=== PATIENT | male | born 2000 | race Caucasian/White ===

== ENCOUNTER 2021-04-01 07:49 | Outpatient (REF) | payer MEDICAID, SELFPAY ==
[2021-04-01 11:08] LABS: MANUAL DIFF FLAG NO
[2021-04-01 11:23] LABS: Basophils Percent Auto 0.4 % (0-2); Eosinophils Absolute Auto 0.2 X10*3/uL (0.0-0.4); Hematocrit 45.4 % (42.0-52.0); Hemoglobin 15.3 g/dl (14.0-18.0); Imm Gran Abs Auto 0.02 X10*3/uL (0.00-0.03); Imm Gran Pct Auto 0.3 % (0.0-0.4); Lymphocytes Absolute Auto 2.2 X10*3/uL (1.2-4.9); Lymphocytes Percent Auto 29.4 % (20-40); Mean Corpuscular HGB Conc 33.7 g/dl (31.0-36.0); Mean Corpuscular Hemoglobin 29.9 pg (27.0-33.0); Mean Corpuscular Volume 88.7 fL (80.0-98.0); Mean Platelet Volume 11.7 fL (9.4-12.4); Monocytes Absolute Auto 0.7 X10*3/uL (0.1-1.2); Monocytes Percent Auto 8.9 % (2-11); Neutrophils Absolute Auto 4.4 x10*3/uL (2.0-8.3); Platelet Count 165 X10*3/uL (160-400); Red Blood Count 5.12 X10*6/uL (4.60-5.80); Red Cell Distribution Width 12.6 % (11.0-16.0); White Blood Count 7.5 X10*3/uL (4.8-10.8)
[2021-04-01 12:03] LABS: Alanine Aminotransferase 60 U/L (0-40); Albumin Level 4.4 g/dL (3.5-5.0); Alkaline Phosphatase 59 U/L (39-117); Anion Gap 11 (12-20); Aspartate Amino Transferase 45 U/L (5-37); Blood Urea Nitrogen 14 mg/dL (9-16); Calcium 9.7 mg/dL (8.4-10.2); Carbon Dioxide 28 mmol/L (22-29); Chloride 108 mmol/L (96-108); Cholesterol 217 mg/dL; Estimated Glomerular Filt Rate > 60; Glucose Random 83 mg/dL (60-115); HDL Cholesterol 69 mg/dL; LDL Cholesterol Calculated 135 mg/dl; Potassium 4.3 mmol/L (3.3-5.1); Sodium 143 mmol/L (135-145); Total Protein 7.3 g/dL (6.5-8.0); Triglycerides 68 mg/dL
== END 2021-04-01 07:50 | disposition home or self-care (01) ==
LOC: HO.HMGCLDS 07:49
PROVIDERS: PCP Internal Medicine; Visit Provider Neuromusculoskeletal Medicine, Sports Medicine
DX: Z00.00 Encounter for general adult medical examination without abnormal findings (principal); R51.9 Headache, unspecified
CPT/HCPCS: 36415; 80053; 80061; 85025

== ENCOUNTER 2021-04-07 08:16 | Outpatient (REF) | payer MEDICAID, SELFPAY ==
--- NOTE | ~2021-04-07 | XR_ITS ---
EXAMINATION: XR CHEST CLINICAL INFORMATION: Episodes of wheezing. History of asthma. COMPARISON: None TECHNIQUE: 2 views of the chest were obtained. FINDINGS: No significant abnormality is noted involving the heart, lungs, mediastinum, bony thorax or soft tissues. XR/XR chest 2V IMPRESSION: Unremarkable chest examination.
== END 2021-04-07 08:17 | disposition home or self-care (01) ==
LOC: HO.XRAY 08:16
PROVIDERS: PCP Internal Medicine; Visit Provider Neuromusculoskeletal Medicine, Sports Medicine
DX: J45.909 Unspecified asthma, uncomplicated (principal)
CPT/HCPCS: 71046

== ENCOUNTER → 2022-03-17 10:36 | Outpatient (BNVA) | payer OTHER, SELFPAY | PROVIDERS: PCP Internal Medicine; Visit Provider Physician Assistant | DX: S61.211A Laceration without foreign body of left index finger without damage to nail, initial encounter (principal); W26.9XXA Contact with unspecified sharp object(s), initial encounter | CPT/HCPCS: 12001; 90715; 99204 ==

== ENCOUNTER → 2022-03-22 14:03 | Outpatient (BNVA) | payer OTHER, SELFPAY | PROVIDERS: PCP Internal Medicine; Visit Provider Physician Assistant Medical | DX: S61.211A Laceration without foreign body of left index finger without damage to nail, initial encounter (principal); W26.9XXA Contact with unspecified sharp object(s), initial encounter | CPT/HCPCS: 99213 ==

== ENCOUNTER → 2022-03-25 12:50 | Outpatient (BNVA) | payer OTHER, SELFPAY | PROVIDERS: PCP Internal Medicine; Visit Provider Physician Assistant | DX: S61.211A Laceration without foreign body of left index finger without damage to nail, initial encounter (principal); W26.9XXA Contact with unspecified sharp object(s), initial encounter | CPT/HCPCS: 99213 ==

== ENCOUNTER → 2022-03-31 15:43 | Outpatient (BNVA) | payer OTHER, SELFPAY | PROVIDERS: PCP Internal Medicine; Visit Provider Internal Medicine | DX: S61.211D Laceration without foreign body of left index finger without damage to nail, subsequent encounter (principal); W26.9XXD Contact with unspecified sharp object(s), subsequent encounter | CPT/HCPCS: 99213 ==

== ENCOUNTER → 2022-04-15 15:29 | Outpatient (BNVA) | payer OTHER, SELFPAY | PROVIDERS: PCP Internal Medicine; Visit Provider Internal Medicine | DX: S61.211D Laceration without foreign body of left index finger without damage to nail, subsequent encounter (principal); W26.9XXD Contact with unspecified sharp object(s), subsequent encounter | CPT/HCPCS: 99213 ==

== ENCOUNTER 2022-11-09 07:27 | Outpatient (AMB) | payer OTHER, SELFPAY ==
[2022-11-09 07:38] VITALS: BP 110/70; PULSE 71; O2SAT 99; BMI 25.1
--- NOTE | 2022-11-09 07:38 | MHC.PC.OV ---
Vital Signs 11/09/22 07:38 Height 5 ft 8 in Weight 165 lb BMI 25.1 BP 110/70 Blood Pressure Location Lt brachial Position Sitting Pulse 71 Pulse Source Pulse Oximeter Pulse Oximetry (%) 99 Oxygen Delivery Method Room Air Intake Visit Reasons: PE Intake Note: Pt is here today for PE. Allergies Penicillins Allergy (Verified 11/09/22 07:40) unknown Medication List - Last Reconciled 11/09/22 by Lisa Choi MD albuterol sulfate 90 mcg/actuation (ProAir HFA) 2 puffs inhalation Q4-6H PRN fluticasone propion-salmeterol 100-50 mcg/dose (Advair Diskus) 1 inh inhalation BID fluticasone propion-salmeterol 250-50 mcg/dose (Advair Diskus) 1 inh inhalation BID Tobacco use date assessed: 11/09/22 Dental Screening Dental Screen Date: 11/09/22 Did you have a dental visit in the last 12 months?: Yes Did you have a dental problem in the last 6 months where you did not have access to dental care?: No Was dental information given to patient?: Patient has dentist HPI PE HPI Details Patient presents for physical. 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 Patient has been using Advair twice a day but also albuterol almost daily. He denies nocturnal shortness of breath or wheezing. [facility] Medical History (Updated 11/09/22 @ 07:57 by Lisa Choi MD) Asthma Family History (Updated 11/09/22 @ 07:44 by Adriana Damon [facility]) Father No problems noted. Mother No problems noted. Social History Housing: House Patient Tobacco Use Status: Never used Tobacco e-Cigarette/Vaping Use: Never Used Current occupational status: employed Cognitive needs: No Hearing needs: Yes Vision needs: No Questionnaire PHQ-9 Over the last 2 weeks, how often have you been bothered by any of the following problems? 1. Little interest or pleasure in doing things: not at all 2. Feeling down, depressed, or hopeless: not at all 3. Trouble falling or staying asleep, or sleeping too much: not at all 4. Feeling tired or having little energy: not at all 5. Poor appetite or overeating: not at all 6. Feeling bad about yourself - or that you are a failure or have let yourself or your family down: not at all 7. Trouble concentrating on things, such as reading the newspaper or watching television: not at all 8. Moving or speaking so slowly that other people could have noticed. Or the opposite - being so fidgety or restless that you have been moving around a lot more than usual: not at all 9. Thoughts that you would be better off or of hurting yourself in some way: not at all Total score: 0 Depression Screening Interpretation: Negative Source: Developed by Drs. Blaine Castro, Lore Arroyo, Zander Pastrana and colleagues, with an educational harvey from [employer]. Thrive Questionnaire Date Thrive assessed: 11/09/22 I am a: Patient What is your living situation today?: I have a steady place to live Within the past 12 months, did the food you bought not last and you didn't have the money to get more?: Never true Within the past 12 months, did you worry whether your food would run out before you got money to buy more?: Never true Do you have trouble paying for medicines?: No Do you have trouble getting transportation to medical appointments?: No Do you have trouble paying your heating and electricity bill?: No Do you have trouble taking care of your child, family member or friend?: No Do you have trouble with day-to-day activities such as bathing, preparing meals, shopping, managing finances, etc.?: No Are you currently unemployed and looking for a job?: No Are you interested in more education?: No Please select the resources that you would like help with: None Currently or been in a relationship where the following occur: no concerns reported AUDIT C Alcohol Use Questionnaire (AUDIT-C) 1. How often do you have a drink containing alcohol?: Monthly or less 2. How many drinks containing alcohol do you have on a typical day when you are drinking?: 1 or 2 3. How often do you have six or more drinks on one occasion?: Never Total Score: 1 ZEESHAN-7 AMB Questionnaire ZEESHAN-7 Date ZEESHAN - 7 assessed: 08/16/23 Feeling nervous, anxious, or on edge: 0 = Not at all Not being able to stop or control worryin = Not at all Worrying too much about different things: 0 = Not at all Trouble relaxin = Not at all Being so restless that it is hard to sit still: 0 = Not at all Becoming easily annoyed or irritable: 0 = Not at all Feeling afraid as if something awful might happen: 0 = Not at all Total ZEESHAN-7 score (0-4 normal; 5-9 mild; 10-14 moderate; 15-21 severe): 0 Source: Developed by Drs. Blaine Castro, Lore Arroyo, Zander Pastrana and colleagues, with an educational harvey from [employer]. Review of Systems Const All systems reviewed & are unremarkable except as noted in HPI and below Reports no additional complaints Eyes Reports no additional complaints ENT Reports no additional complaints Card Reports no additional complaints Resp Reports no additional complaints GI Reports no additional complaints Reports no additional complaints Physical exam (Primary Care) Vital Signs: Last Vital Signs Pulse 71 11/09/22 07:38 BP 110/70 11/09/22 07:38 Pulse Ox 99 11/09/22 07:38 Oxygen Delivery Method Room Air 11/09/22 07:38 BMI result Body Mass Index 25.1 Tobacco/Smoking Status: Tobacco use Status Tobacco use date assessed 11/09/22 11/09/22 07:44 Patient Tobacco Use Status Never used Tobacco 11/09/22 07:44 e-Cigarette/Vaping Use Never Used 11/09/22 07:44 PHQ-9: PHQ-9 Score PHQ-9: Total score 0 11/09/22 07:44 Depression Screening Interpretation: Negative Thrive Assessment: Date of Thrive Assessment Date Thrive assessed 11/09/22 11/09/22 07:44 Currently or been in a relationship where the following occur: no concerns reported Const General: no acute distress HENMT Head: Yes normal to inspection General nose exam: Normal external nose present Mouth: Normal oral and palatal mucosa present Throat: Yes posterior oropharynx normal Eyes General: appearance normal, both eyes and all related structures Neck Neck: Yes no lymphadenopathy and Yes supple Resp Effort & Inspection: normal respiratory effort Auscultation: clear to auscultation bilaterally Cardio Rhythm: regular rhythm Heart sounds: S1 normal heart sound present and S2 normal heart sound present GI Inspection: Yes normal to inspection Palpation (GI): Soft to palpation Percussion: Yes normal to percussion Auscultation: normal bowel sounds Assessment and Plan Assessment & Plan (1) Warts: Code(s): B07.9 - Viral wart, unspecified Plan: Referred to dermatology (2) Annual physical exam: Code(s): Z00.00 - Encounter for general adult medical examination without abnormal findings Plan: Well-balanced diet regular physical activity discussed with the patient. Return in 3 months with a fasting labs including lipid profile (3) Asthma: Code(s): J45.909 - Unspecified asthma, uncomplicated Plan: Increase Advair to 250 twice a day continue albuterol as needed Orders: Orders Comprehensive [place]. Panel Fast 3 Months J45.909 - Unspecified asthma, uncomplicated, Z00.00 - Encounter for general adult medical examination without abnormal findings Complete Blood Count Auto Diff 3 Months J45.909 - Unspecified asthma, uncomplicated, Z00.00 - Encounter for general adult medical examination without abnormal findings Lipid Panel 3 Months J45.909 - Unspecified asthma, uncomplicated, Z00.00 - Encounter for general adult medical examination without abnormal findings Referrals Dermatology Referral B07.9 - Viral wart, unspecified Medications: New fluticasone propion-salmeterol 250-50 mcg/dose (Advair Diskus) 1 inh inhalation BID 60 ea 5RF Refilled albuterol sulfate 90 mcg/actuation (ProAir HFA) 2 puffs inhalation Q4-6H PRN 17 grams 4RF shortness of breath or wheezing Coding Level of Care Code Est Pt Prev Care 18-39y(03289) Diagnoses Warts B07.9 Annual physical exam Z00.00 Asthma J45.909
== END 2022-11-09 08:58 | disposition home or self-care (01) ==
PROVIDERS: Visit Provider Internal Medicine
DX: B07.9 Viral wart, unspecified (principal); Z00.00 Encounter for general adult medical examination without abnormal findings; J45.909 Unspecified asthma, uncomplicated
CPT/HCPCS: 99395

== ENCOUNTER 2023-05-22 14:48 | Outpatient (REF) | payer OTHER, SELFPAY ==
--- NOTE | ~2023-05-22 | XR_ITS ---
EXAMINATION: XR CHEST CLINICAL INFORMATION: Asthma COMPARISON: 04/07/2021 TECHNIQUE: 2 views of the chest were obtained. FINDINGS: No significant abnormality is noted involving the heart, lungs, mediastinum, bony thorax or soft tissues. XR/XR chest 2V IMPRESSION: Unremarkable examination.
[2023-05-22 16:15] LABS: MANUAL DIFF FLAG NO
[2023-05-22 17:17] LABS: Basophils Absolute Auto 0.1 X10*3/uL (0.0-0.2); Basophils Percent Auto 0.6 % (0-2); Eosinophils Percent Auto 0.4 % (0-4); Hematocrit 44.1 % (42.0-52.0); Hemoglobin 15.2 g/dl (14.0-18.0); Imm Gran Abs Auto 0.02 X10*3/uL (0.00-0.03); Imm Gran Pct Auto 0.2 % (0.0-0.4); Lymphocytes Absolute Auto 2.2 X10*3/uL (1.2-4.9); Lymphocytes Percent Auto 26.8 % (20-40); Mean Corpuscular HGB Conc 34.5 g/dl (31.0-36.0); Mean Corpuscular Hemoglobin 29.5 pg (27.0-33.0); Mean Corpuscular Volume 85.6 fL (80.0-98.0); Mean Platelet Volume 11.4 fL (9.4-12.4); Monocytes Absolute Auto 0.6 X10*3/uL (0.1-1.2); Monocytes Percent Auto 6.8 % (2-11); Neutrophils Absolute Auto 5.3 x10*3/uL (2.0-8.3); Neutrophils Percent Auto 65.2 % (45-73); Platelet Count 189 X10*3/uL (160-400); Red Blood Count 5.15 X10*6/uL (4.60-5.80); Red Cell Distribution Width 11.8 % (11.0-16.0); White Blood Count 8.2 X10*3/uL (4.8-10.8)
[2023-05-22 17:56] LABS: Erythrocyte Sedimentation Rate 2 MM/HR (0-15)
[2023-05-29 16:14] LABS: Class Alternaria alternata 0; Class Aspergillus fumigatus 0; Class Bermuda Grass 0; Class Birch 0; Class Cat Dander 0; Class Cladosporium herbarum 0; Class Cockroach 0; Class Common Ragweed 0; Class Cottonwood 0; Class Derm. pterony 0; Class Dermatophagoides farinae 0; Class Dog Dander 0; Class Elm 0; Class Maple Box Elder 0; Class Mountain Cedar 0; Class Mouse Urine Protein 0; Class Mugwort 0; Class Oak 0; Class Penicillium crysogenum 0; Class Rough Pigweed 0; Class Sheep Sorrel 0; Class Sycamore 0; Class Timothy Grass 0; Class Walnut Tree 0; Class White Ash 0; Class White Mulberry 0; D001 IgE D pteronyssinus <0.10 kU/L; D002 - IgE D farinae <0.10 kU/L; E001 - IgE Cat Dander <0.10 kU/L; E005 - IgE Dog Dander <0.10 kU/L; E072-IgE Mouse Urine <0.10 kU/L; G002 IgE Bermuda Grass <0.10 kU/L; G006 - IgE Timothy Grass <0.10 kU/L; I006-IgE Cockroach, German <0.10 kU/L; Immunoglobulin E 51 kU/L (<OR=114); M001 IgE Penicillium chrysogen <0.10 kU/L; M002 - IgE Cladosporium herbar <0.10 kU/L; M003 - IgE Aspergillus fumigat <0.10 kU/L; M006 - IgE Alternaria alternat <0.10 kU/L; T001 IgE Maple/Box Elder <0.10 kU/L; T003 IgE Common Silver Birch <0.10 kU/L; T006 - IgE Cedar, Mountain <0.10 kU/L; T007 - IgE Oak, White <0.10 kU/L; T008 IgE Elm, American <0.10 kU/L; T010 - IgE Walnut <0.10 kU/L; T011 - IgE Maple Leaf Sycamore <0.10 kU/L; T014 - IgE Cottonwood <0.10 kU/L; T015 - IgE Ash, White <0.10 kU/L; T070 - IgE White Mulberry <0.10 kU/L; W001 - IgE Ragweed, Short <0.10 kU/L; W006 - IgE Mugwort <0.10 kU/L; W014 IgE Pigweed, Common <0.10 kU/L; W018 IgE Sheep Sorrel <0.10 kU/L
== END 2023-05-22 14:49 | disposition home or self-care (01) ==
LOC: HO.LAB 14:48
PROVIDERS: PCP Internal Medicine; Visit Provider Hospitalist
DX: R91.1 Solitary pulmonary nodule (principal); J45.40 Moderate persistent asthma, uncomplicated; R05.3 Chronic cough; T78.40XA Allergy, unspecified, initial encounter
CPT/HCPCS: 36415; 71046; 82785; 85025; 85652; 86003; 99202

== ENCOUNTER 2023-05-22 14:48 | Outpatient (AMB) | payer OTHER, SELFPAY ==
[2023-05-22 14:59] VITALS: PULSE 82; O2SAT 98; BMI 25.1
--- NOTE | 2023-05-22 14:59 | A.OFFVIS_ITS ---
Intake Vital Signs 05/22/23 14:59 Height 5 ft 8 in Weight 164 lb 14.492 oz BMI 25.1 Pulse 82 Pulse Source Pulse Oximeter Pulse Oximetry (%) 98 Oxygen Delivery Method Room Air Intake Visit Reasons: Asthma Drafter Geological Required: No Allergies Penicillins Allergy (Verified 05/22/23 15:02) unknown HPI HPI Comments History of Present Illness Details the patient is here for pulmonary evaluation. The patient is a 23-year-old gentleman with a known history of childhood asthma who is presenting with worsening dyspnea symptoms. 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 There was lot of grinding. There is a lot of inorganic dust. Denies any exposure to any sand blasting or glass beating. the patient has been on Advair for many years. Typically does well and sometimes is can be off the medication. But sometimes when his breathing flares up he goes back the Advair has a hard time with his breathing. He has been having more frequent flare-ups. He does believe that the work may have something to do with it. He does know about any underlying allergies. Does not have any mold exposure. Has a pet dog. Denies any bird exposures. Again occupation [employer] he does have sign ificant exposures. No recent x-rays PFTs to review. At this point will start him on a Symbicort inhaler which I do believe will provide him with better as needed medication as opposed to the Advair as needed. in addition to that he may be a good candidate for Singulair but based on the fact that will be doing some initial testing the fact that he is doing okay will try to minimize the amount of medications at this time. Therefore, will switch him over the Symbicort will have a chest x-ray blood work and his PFTs and will follow-up to review the results. If the patient develops any worsening symptoms prior to the next visit he will call for earlier assessment. [facility] Medical History (Updated 05/22/23 @ 22:54 by Donald Bo MD) Chronic cough Allergies Asthma Family History (Updated 11/09/22 @ 07:44 by Adriana Damon [facility]) Father No problems noted. Mother No problems noted. Social History Housing: House Patient Tobacco Use Status: Never used Tobacco e-Cigarette/Vaping Use: Never Used Current occupational status: employed Cognitive needs: No Hearing needs: Yes Vision needs: No Review of Systems Const Denies fever(s) Eyes Reports no additional complaints ENT Reports nasal congestion Card Denies chest pain Resp Reports cough and Reports wheezing GI Reports no additional complaints Musc Reports no additional complaints Skin/Breast Denies rash Neuro Reports no additional complaints Beltran/Lymph Denies lymphadenopathy Aller/Immun Reports wheezing Physical Exam Vital Signs: Last Vital Signs Pulse 82 05/22/23 14:59 Pulse Ox 98 05/22/23 14:59 Oxygen Delivery Method Room Air 05/22/23 14:59 BMI result Body Mass Index 25.1 Const General: comfortable HEENT Head: Yes normocephalic Neck Neck: Yes supple Chest Chest palpation & inspection: normal inspection of the chest Resp Effort & Inspection: normal respiratory effort and prolonged expiratory phase Auscultation: no wheezes Cardio Heart sounds: S1 normal heart sound present and S2 normal heart sound present GI Palpation (GI): Soft to palpation Skin General skin exam: no rashes or lesions noted Extrem General: Yes no clubbing, cyanosis or edema Assessment & Plan Assessment & Plan (1) Asthma: Code(s): J45.909 - Unspecified asthma, uncomplicated Qualifiers: Asthma severity: moderate Asthma persistence: persistent Asthma complication type: uncomplicated Qualified Code(s): J45.40 - Moderate persistent asthma, uncomplicated (2) Allergies: Code(s): T78.40XA - Allergy, unspecified, initial encounter Qualifiers: Encounter type: initial encounter Qualified Code(s): T78.40XA - Allergy, unspecified, initial encounter (3) Chronic cough: Code(s): R05.3 - Chronic cough Plan Bloodwork/allergy testing PFTs CXR Stop Advair Start Symbicort BID consider singulair F/U 2-3 months Orders: Orders Resp Allergy Profile Region I Today J45.909 - Unspecified asthma, uncomplicated, R91.1 - Solitary pulmonary nodule, T78.40XA - Allergy, unspecified, initial encounter Immunoglobulin E Today J45.909 - Unspecified asthma, uncomplicated, T78.40XA - Allergy, unspecified, initial encounter Complete Blood Count Auto Diff Today J45.909 - Unspecified asthma, uncomplicated, T78.40XA - Allergy, unspecified, initial encounter PFT pulmonary function test Today J45.909 - Unspecified asthma, uncomplicated XR chest 2V Today J45.909 - Unspecified asthma, uncomplicated, T78.40XA - Allergy, unspecified, initial encounter Erythrocyte Sedimentation Rate Today J45.909 - Unspecified asthma, uncomplicated, T78.40XA - Allergy, unspecified, initial encounter Medications: New budesonide-formoterol 160-4.5 mcg/actuation (Symbicort) 2 puffs inhalation BID 30 days 10.2 grams 11RF J44.89 - Other specified chronic obstructive pulmonary disease Coding Level of Care Code New Pt Level 4 (48154) Diagnoses Moderate persistent asthma without complication J45.40 Asthma severity: moderate Asthma persistence: persistent Asthma complication type: uncomplicated Allergy, initial encounter T78.40XA Encounter type: initial encounter Chronic cough R05.3 Time Spent (min) 35
== END 2023-05-22 15:43 | disposition home or self-care (01) ==
PROVIDERS: PCP Internal Medicine; Visit Provider Hospitalist
DX: J45.40 Moderate persistent asthma, uncomplicated (principal); T78.40XA Allergy, unspecified, initial encounter; R05.3 Chronic cough
CPT/HCPCS: 99204

== ENCOUNTER 2023-06-26 15:00 | Outpatient (REF) | payer OTHER, SELFPAY ==
[2023-06-26 10:17] VITALS: PULSE 62; RESP 16; O2SAT 99
--- NOTE | 2023-06-26 16:00 | PFT_ITS ---
Indication: Asthma Spirometry [FEV1 to FVC 84%; FEV1 4.66 L; FVC 5.54 L. No significant response to bronchodilators noted. Maximum voluntary ventilation within normal limits.] Lung Volumes [Thorough on capacity 107% predicted] Diffusion Capacity [DLCO 103% predicted] Comparisons [None] Interpretation [No obstructive nor restrictive ventilatory defects appreciated. No significant response to bronchodilators noted. Normal stability ventilation. Lung volumes are within normal limits. Diffusing capacity also within normal limits. If asthma is in the differential methacholine challenge may be helpful in assessing for hyperactive airways. Clinical correlation warranted.] MTDD
== END 2023-06-26 15:01 | disposition home or self-care (01) ==
LOC: HO.RESP 15:00
PROVIDERS: PCP Internal Medicine; Visit Provider Hospitalist
DX: J45.909 Unspecified asthma, uncomplicated (principal)
CPT/HCPCS: 94010; 94640; 94727; 94729

== ENCOUNTER → 2023-06-26 16:00 | Outpatient (BNV) | payer OTHER, SELFPAY | PROVIDERS: PCP Internal Medicine; Visit Provider Hospitalist | DX: J45.909 Unspecified asthma, uncomplicated (principal) | CPT/HCPCS: 94060; 94727; 94729 ==

== ENCOUNTER 2023-07-24 14:36 | Outpatient (AMB) | payer OTHER, SELFPAY ==
[2023-07-24 14:42] VITALS: BP 124/76; PULSE 77; O2SAT 99; BMI 25.5
--- NOTE | 2023-07-24 14:42 | MHC.OFFVIS ---
Vital Signs 07/24/23 14:42 Height 5 ft 8 in Weight 167 lb 8.821 oz BMI 25.5 BP 124/76 Blood Pressure Location Rt brachial Position Sitting Pulse 77 Pulse Source Pulse Oximeter Pulse Oximetry (%) 99 Oxygen Delivery Method Room Air Intake Visit Reasons: Asthma Allergies Penicillins Allergy (Verified 07/24/23 14:44) unknown HPI Comments Details: The patient is a 23-year-old gentleman with a known history of childhood asthma who is presenting with worsening dyspnea symptoms. 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 There was lot of grinding. There is a lot of inorganic dust. Denies any exposure to any sand blasting or glass beating. the patient has been on Advair for many years. Typically does well and sometimes is can be off the medication. But sometimes when his breathing flares up he goes back the Advair has a hard time with his breathing. He has been having more frequent flare-ups. He does believe that the work may have something to do with it. He does know about any underlying allergies. Does not have any mold exposure. Has a pet dog. Denies any bird exposures. Again occupation [employer] he does have significant exposures. No recent x-rays PFTs to review. At this point will start him on a Symbicort inhaler which I do believe will provide him with better as needed medication as opposed to the Advair as needed. in addition to that he may be a good candidate for Singulair but based on the fact that will be doing some initial testing the fact that he is doing okay will try to minimize the amount of medications at this time. Therefore, will switch him over the Symbicort will have a chest x-ray blood work and his PFTs and will follow-up to review the results. If the patient develops any worsening symptoms prior to the next visit he will call for earlier assessment. 07/24/2023 the patient is here for a pulmonary follow-up visit. Overall he is doing well. 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 Unfortunately was not able to fill the Symbicort. Will go ahead and recently to the pharmacy. He overall has been doing well although she has had episodes of coughing spasms. Where he will cough to the point of vomiting. Explained to him that will try to decrease the cough burden by using the inhaler and also can provide him with benzo nights to help him alleviate the throat so he has not having some any coughing episodes. And then the last he coughs the more rest he gets some the more healing that occurs to try to minimize further coughing spasms in the future. The patient did have x-rays which were completely clear personally by me. His PFTs were complaining normal which is reassuring. In his blood work and allergy testing was all -2. Therefore will start the Symbicort and also the Bentson nasal as needed will follow-up in 6-8 months. If he develops any worsening symptoms prior to that he will call for an earlier assessment. [facility] Medical History (Updated 05/22/23 @ 22:54 by Donald Bo MD) Chronic cough Allergies Asthma Family History (Updated 11/09/22 @ 07:44 by FRANCISCO Prescott) Father No problems noted. Mother No problems noted. Social History Housing: House Patient Tobacco Use Status: Never used Tobacco e-Cigarette/Vaping Use: Never Used Current occupational status: employed Cognitive needs: No Hearing needs: Yes Vision needs: No Review of Systems Const Denies fever(s) Eyes Reports no additional complaints ENT Reports nasal congestion Card Denies chest pain Resp Reports cough and Reports wheezing GI Reports no additional complaints Musc Reports no additional complaints Skin/Breast Denies rash Neuro Reports no additional complaints Beltran/Lymph Denies lymphadenopathy Aller/Immun Reports wheezing Physical Exam Vital Signs: Last Vital Signs Pulse 77 07/24/23 14:42 BP 124/76 07/24/23 14:42 Pulse Ox 99 07/24/23 14:42 Oxygen Delivery Method Room Air 07/24/23 14:42 BMI result Body Mass Index 25.5 Const General: comfortable HEENT Head: Yes normocephalic Neck Neck: Yes supple Chest Chest palpation & inspection: normal inspection of the chest Resp Effort & Inspection: normal respiratory effort and No prolonged expiratory phase Auscultation: clear to auscultation bilaterally and no wheezes Cardio Heart sounds: S1 normal heart sound present and S2 normal heart sound present GI Palpation (GI): Soft to palpation Skin General skin exam: no rashes or lesions noted Extrem General: Yes no clubbing, cyanosis or edema Assessment & Plan Assessment & Plan (1) Asthma: Code(s): J45.909 - Unspecified asthma, uncomplicated Category: Medical Qualifiers: Asthma complication type: uncomplicated Asthma persistence: persistent Asthma severity: moderate Qualified Code(s): J45.40 - Moderate persistent asthma, uncomplicated (2) Allergies: Code(s): T78.40XA - Allergy, unspecified, initial encounter Category: Medical Qualifiers: Encounter type: initial encounter Qualified Code(s): T78.40XA - Allergy, unspecified, initial encounter (3) Chronic cough: Code(s): R05.3 - Chronic cough Category: Medical Plan Start Symbicort BID consider singulair start benzonates as needed F/U 6 months Medications: New benzonatate 200 mg PO BID PRN 60 caps 6RF cough 30 days Refilled budesonide-formoterol 160-4.5 mcg/actuation (Symbicort) 2 puffs inhalation BID 10.2 grams 11RF 30 days J44.89 - Other specified chronic obstructive pulmonary disease Coding Level of Care Code Est Pt Level 4 (25250) Diagnoses Moderate persistent asthma without complication J45.40 Asthma complication type: uncomplicated Asthma persistence: persistent Asthma severity: moderate Allergy, initial encounter T78.40XA Encounter type: initial encounter Chronic cough R05.3 Time Spent (min) 17
== END 2023-07-24 14:59 | disposition home or self-care (01) ==
PROVIDERS: PCP Internal Medicine; Visit Provider Hospitalist
DX: J45.40 Moderate persistent asthma, uncomplicated (principal); T78.40XA Allergy, unspecified, initial encounter; R05.3 Chronic cough
CPT/HCPCS: 99214

== ENCOUNTER → 2023-07-24 14:36 | Outpatient (BNVA) | payer OTHER, SELFPAY | PROVIDERS: PCP Internal Medicine; Visit Provider Hospitalist | DX: J45.40 Moderate persistent asthma, uncomplicated (principal); T78.40XA Allergy, unspecified, initial encounter; J44.89 Other specified chronic obstructive pulmonary disease; R05.3 Chronic cough; Z57.2 Occupational exposure to dust; Z79.899 Other long term (current) drug therapy | CPT/HCPCS: 99212 ==

== ENCOUNTER 2024-02-13 14:35 | Outpatient (AMB) | payer OTHER, SELFPAY ==
[2024-02-13 14:52] VITALS: BP 100/62; PULSE 67; O2SAT 98; BMI 25.6
--- NOTE | 2024-02-13 14:52 | A.OFFVIS_ITS ---
Vital Signs 02/13/24 14:52 Height 5 ft 8 in Weight 168 lb 10.458 oz BMI 25.6 BP 100/62 Blood Pressure Location Rt brachial Position Sitting Pulse 67 Pulse Source Pulse Oximeter Pulse Oximetry (%) 98 Oxygen Delivery Method Room Air Intake Visit Reasons: Asthma Allergies Penicillins Allergy (Verified 02/13/24 14:55) unknown HPI Comments Details: The patient is a 24-year-old gentleman with a known history of childhood asthma who is presenting with worsening dyspnea symptoms. 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 There was lot of grinding. There is a lot of inorganic dust. Denies any exposure to any sand blasting or glass beating. the patient has been on Advair for many years. Typically does well and sometimes is can be off the medication. But sometimes when his breathing flares up he goes back the Advair has a hard time with his breathing. He has been having more frequent flare-ups. He does believe that the work may have something to do with it. He does know about any underlying allergies. Does not have any mold exposure. Has a pet dog. Denies any bird exposures. Again occupation [employer] he does have significant exposures. No recent x-rays PFTs to review. At this point will start him on a Symbicort inhaler which I do believe will provide him with better as needed medication as opposed to the Advair as needed. in addition to that he may be a good candidate for Singulair but based on the fact that will be doing some initial testing the fact that he is doing okay will try to minimize the amount of medications at this time. Therefore, will switch him over the Symbicort will have a chest x-ray blood work and his PFTs and will follow-up to review the results. If the patient develops any worsening symptoms prior to the next visit he will call for earlier assessment. 07/24/2023 the patient is here for a pulmonary follow-up visit. Overall he is doing well. 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 Unfortunately was not able to fill the Symbicort. Will go ahead and recently to the pharmacy. He overall has been doing well although she has had episodes of coughing spasms. Where he will cough to the point of vomiting. Explained to him that will try to decrease the cough burden by using the inhaler and also can provide him with benzo nights to help him alleviate the throat so he has not having some any coughing episodes. And then the last he coughs the more rest he gets some the more healing that occurs to try to minimize further coughing spasms in the future. The patient did have x-rays which were completely clear personally by me. His PFTs were complaining normal which is reassuring. In his blood work and allergy testing was all -2. Therefore will start the Symbicort and also the Bentson nasal as needed will follow-up in 6-8 months. If he develops any worsening symptoms prior to that he will call for an earlier assessment. 02/13/2024 the patient is here for a pulmonary follow-up visit. The patient overall has been doing very well. Continues uses Symbicort regularly and also has use the benzo nights for cough. Has not had anymore those gagging episodes. Coughing episodes of subsided significantly. He is concerned about the winter because is when the symptoms started. We did review his chest x-ray which was clear without any acute disease and he is PFTs were also reassuring. At this time will continue with current respiratory therapy will follow-up in 12 months. If he started developing worsening respiratory symptoms the cough in the dry heaving he is going to call for an earlier assessment. [facility] Medical History (Updated 05/22/23 @ 22:54 by Donald Bo MD) Chronic cough Allergies Asthma Family History (Updated 11/09/22 @ 07:44 by Adriana Damon Toya) Father No problems noted. Mother No problems noted. Social History Housing: House Patient Tobacco Use Status: Never used Tobacco e-Cigarette/Vaping Use: Never Used Current occupational status: employed Cognitive needs: No Hearing needs: Yes Vision needs: No Review of Systems Const Denies fever(s) Eyes Reports no additional complaints ENT Reports nasal congestion Card Denies chest pain Resp Denies cough and Denies wheezing GI Reports no additional complaints Musc Reports no additional complaints Skin/Breast Denies rash Neuro Reports no additional complaints Beltran/Lymph Denies lymphadenopathy Aller/Immun Denies wheezing Physical Exam Vital Signs: Last Vital Signs Pulse 67 02/13/24 14:52 BP 100/62 02/13/24 14:52 Pulse Ox 98 02/13/24 14:52 Oxygen Delivery Method Room Air 02/13/24 14:52 BMI result Body Mass Index 25.6 Const General: comfortable HEENT Head: Yes normocephalic Neck Neck: Yes supple Chest Chest palpation & inspection: normal inspection of the chest Resp Effort & Inspection: normal respiratory effort and No prolonged expiratory phase Auscultation: clear to auscultation bilaterally and no wheezes Cardio Heart sounds: S1 normal heart sound present and S2 normal heart sound present GI Palpation (GI): Soft to palpation Skin General skin exam: no rashes or lesions noted Extrem General: Yes no clubbing, cyanosis or edema Assessment & Plan Assessment & Plan (1) Asthma: Code(s): J45.909 - Unspecified asthma, uncomplicated Category: Medical Qualifiers: Asthma complication type: uncomplicated Asthma persistence: persistent Asthma severity: moderate Qualified Code(s): J45.40 - Moderate persistent asthma, uncomplicated (2) Allergies: Code(s): T78.40XA - Allergy, unspecified, initial encounter Category: Medical Qualifiers: Encounter type: initial encounter Qualified Code(s): T78.40XA - Allergy, unspecified, initial encounter (3) Chronic cough: Code(s): R05.3 - Chronic cough Category: Medical Plan Symbicort BID consider singulair benzonates as needed F/U 12 months Medications: Refilled budesonide-formoterol 160-4.5 mcg/actuation (Symbicort) 2 puffs inhalation BID 10.2 grams 11RF 30 days J44.89 - Other specified chronic obstructive pulmonary disease benzonatate 200 mg PO BID PRN 60 caps 11RF cough 30 days Coding Level of Care Code Est Pt Level 4 (95601) Diagnoses Moderate persistent asthma without complication J45.40 Asthma complication type: uncomplicated Asthma persistence: persistent Asthma severity: moderate Allergy, initial encounter T78.40XA Encounter type: initial encounter Chronic cough R05.3 Time Spent (min) 16
== END 2024-02-13 15:06 | disposition home or self-care (01) ==
PROVIDERS: PCP Internal Medicine; Visit Provider Hospitalist
DX: J45.40 Moderate persistent asthma, uncomplicated (principal); T78.40XA Allergy, unspecified, initial encounter; R05.3 Chronic cough
CPT/HCPCS: 99214

== ENCOUNTER → 2024-02-13 14:35 | Outpatient (BNVA) | payer OTHER, SELFPAY | PROVIDERS: PCP Internal Medicine; Visit Provider Hospitalist | DX: J45.40 Moderate persistent asthma, uncomplicated (principal); R05.3 Chronic cough; T78.40XA Allergy, unspecified, initial encounter | CPT/HCPCS: 99212 ==